=== PATIENT | male | born 1990 | race Caucasian/White ===

== ENCOUNTER 2024-12-10 07:16 | Emergency (ER) | payer SELFPAY ==
--- NOTE | ~2024-12-10 | CT_ITS ---
EXAMINATION: CT cervical spine wo con DATE: 12/10/2024 08:06 INDICATION: Neck pain radiating to the shoulders TECHNIQUE: Computed tomography (CT) of the cervical spine was performed without intravenous contrast. Automated exposure control and iterative reconstruction technique were employed. The dose-length product was 267.24 mGy-cm. COMPARISON: None FINDINGS: Cervical alignment is normal. Slight upper thoracic levocurvature. Vertebral body and disc heights are normal. There is suggestion of a right paracentral disc extrusion at C6-C7 with what appears to be disc material extending a few millimeters cephalad to the level of the inferior endplate of C6. This results in mild narrowing of the right side of the central canal and the right lateral recess. Sensitivity and specificity for assessment of the disks is however more limited than with MRI. Minimal to mild osteoarthritis at a few of the cervical facet and uncovertebral joints which does not result in appreciable neural foraminal stenosis. Visualized upper lungs are clear. Cervical soft tissues are unremarkable. Mastoid air cells, middle ear cavities and visualized portions of the paranasal sinuses are also clear. IMPRESSION: 1. Suggestion of a right paracentral disc extrusion at C6-C7 which mildly narrows the right side of the central canal and right lateral recess. Assessment of the disks is however significantly more limited with CT than MRI and could consider MRI for confirmation as clinically indicated. Reviewed, dictated and finalized at location A. IMPRESSION: 1. Suggestion of a right paracentral disc extrusion at C6-C7 which mildly narro ws the right side of the central canal and right lateral recess. Assessment of the disks is however significantly more limited with CT than MRI and could cons ider MRI for confirmation as clinically indicated.
[2024-12-10 07:16] VITALS: BP 127/85; PULSE 61; RESP 16; TEMP 36.5; O2SAT 99
--- NOTE | 2024-12-10 07:44 | ED_ITS ---
HPI - Neck Pain/Injury General Chief Complaint: Neck Pain/Injury Stated Complaint: neck pain denies injury Source: patient Mode of arrival: ambulatory Limitations: no limitations History of Present Illness HPI Narrative: 33-year-old male with a history of prior right shoulder pain presents to the ED with a 4 day history of -- neck pain radiating to Right shoulder. -- Pain over the anterior neck and the posterior neck muscles. No motor or sensory loss of the right upper extremity. no history of trauma. The patient has been moving heavy objects at home. MD complaint: neck pain Onset (ago): day(s) ( Four days) Radiation: right lateral and right shoulder Severity: severe Quality: aching Duration: constant Relieving factors: immobilization Exacerbating factors: movement of extremity Associated symptoms: numbness and tingling ( numbness tingling of right little finger) Treatments prior to arrival: ibuprofen Related Data Allergies Allergy/AdvReac Type Severity Reaction Status Date / Time No Known Allergies Allergy Verified 12/10/24 07:40 Review of Systems Review of Systems: All systems reviewed & are unremarkable except as noted in HPI and below Constitutional: Constitutional: Reports as per HPI and Reports no additional constitutional complaints Eyes: Eyes: Reports as per HPI and Reports no additional eye complaints ENT: Reports system reviewed and no additional complaints, except as documented and Reports as per HPI Cardiovascular: Cardiovascular: Reports as per HPI and Reports no additional cardiovascular complaints Respiratory: Respiratory: Reports as per HPI and Reports no additional respiratory complaints Gastrointestinal: Gastrointestinal: Reports as per HPI and Reports no additional gastrointestinal complaints Genitourinary: Genitourinary: Reports no additional male genitourinary complaints and Reports as per HPI Musculoskeletal: Musculoskeletal: Reports no additional musculoskeletal complaints and Reports as per HPI Integumentary/Breasts: Skin/Breast: Reports system reviewed and no additional complaints, except as docu and Reports as per HPI Neurologic: Reports system reviewed and no additional complaints, except as documented and Reports as per HPI Comments: numbness and tingling of the right little finger Psychiatric: Psychiatric: Reports no additional psychiatric complaints and Reports as per HPI Endocrine: Endocrine: Reports no additional endocrine complaints and Reports as per HPI Hematologic/Lymphatic: Hematologic/Lymphatic: Reports no additional hematologic/lymphatic complaints and Reports as per HPI Allergic/Immunologic: Allergic/Immunologic: Reports no additional allergic/immunologic complaints and Reports as per HPI Exam Narrative: vitals are stable. Afebrile Const: General: no acute distress Orientation/consciousness: patient oriented x3 Limitations: no limitations HENMT: Head: normal to inspection Ears: external ears normal Face/Nose/Sinus: Normal external nose present Face and sinus: normal facial exam Throat: posterior oropharynx normal Eyes: Conjunctivae: conjunctivae normal Pupils: Equal, round and reactive pupils present EOM: EOMs intact bilaterally Direct Ophthalmoscopy: no photophobia Neck: Neck: normal visual inspection, no lymphadenopathy and no meningeal signs Other: tenderness over C7-T1 region. Tenderness over the sternomastoid on the right side tenderness over the trapezius the right side. Chest: Chest palpation & inspection: normal inspection of the chest Resp: Effort & Inspection: normal respiratory effort Auscultation: clear to auscultation bilaterally Cardio: Rate: regular rate Rhythm: regular rhythm GI: GI Palp: Yes Soft to palpation Auscultation: normal bowel sounds Other: no tenderness/ rigidity / rebound. : General: Yes no CVA tenderness Back/Spine/Pelvis: Back: no CVA tenderness Skin: General skin exam: normal color Rashes: no rashes Wounds: no wounds Neuro: General: patient oriented x3, moves all extremities, no meningeal signs and CN's II-XI intact bilaterally Cranial nerves: Yes Nystagmus not present Speech: normal speech Gait exam (Neuro): Normal gait present Extrem: General: normal to inspection Other: Intact reflexes of right upper extremity Psych: Mental Status: mental status grossly normal Affect: normal affect Attitude: cooperative Course Course Emergency Course: Acute onset neck pain radiating to the right shoulder myalgia of the sternomastoid and the right trapezius CT of the C-spine revealed right paracentral disc extrusion at C6/C7 level with narrowing of the right central canal and right lateral recess. Vital Signs Vital signs: Vital Signs Temperature 36.5 C 12/10/24 07:16 Pulse Rate 61 12/10/24 07:16 Respiratory Rate 16 12/10/24 07:16 Blood Pressure 127/85 12/10/24 07:16 Pulse Oximetry 99 12/10/24 07:16 Oxygen Delivery Room Air 12/10/24 07:16 Temperature 36.5 C 12/10/24 07:16 Pulse Rate 61 12/10/24 07:16 Respiratory Rate 16 12/10/24 07:16 Blood Pressure 127/85 12/10/24 07:16 Pulse Oximetry 99 12/10/24 07:16 Oxygen Delivery Room Air 12/10/24 07:16 MDM - Neck Pain/Injury MDM Narrative Medical decision making narrative: Cervical intervertebral disc prolapse WITH RADICULOPATHY Differential Diagnosis Differential diagnosis: Likely cervical radiculopathy and strain of neck muscle Lab Data Attestation: I reviewed the patient's lab results. Discharge Plan Discharge Clinical Impression: Cervical radiculopathy, Prolapsed cervical intervertebral disc Patient Disposition: Home Condition: Stable Instructions: Antibiotic Form, Cervical Radiculopathy (ED), Acute Neck Pain (ED) Patient Language: Belarusian Prescriptions: New cyclobenzaprine 5 mg tablet 5 mg PO TID PRN (Reason: muscle spasm) Qty: 10 0RF diclofenac sodium 50 mg tablet,delayed release (DR/EC) 50 mg PO Q12H PRN (Reason: pain) Qty: 30 0RF Follow-up/Referrals: Colby Lipscomb MD [Physician, Internal Medicine] Stand Alone Forms: Work/School Release IP Time of Disposition: 08:52
[2024-12-10] MEDS: KETOROLAC 30 MG/ML VIAL (*BKC) IM (07:55)
--- OUTSIDE RECORDS SUMMARY | 2024-12-10 08:14 | XMS_ITS | Clinical Summary ---
Author Organization [facility] Address [address] [place] [address] Care Team Providers Care Doctor Of Podiatry Name Role Phone Donaldo Bach MD Primary Care Provider [phone] Allergies No known active allergies Medications No known medications Active Problems Problem Noted Date Diagnosed Date Right knee pain 10/31/2021 Social History Tobacco Use Types Packs/Day Years Used Date Smoking Tobacco: Former Smokeless Tobacco: Never Tobacco Cessation:Counseling Given: Not Answered Alcohol Use Standard Drinks/Week Comments Never 0 (1 standard drink = 0.6 oz pur e alcohol) Sex and Gender Information Value Date Recorded Sex Assigned at Not on file 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 Gender Identity Not on file Sexual Orientation Not on file Last Filed Vital Signs Vital Sign Reading Time Taken Comments Blood Pressure 128/71 09/03/2023 8:57 AM CDT Pulse 65 09/03/2023 8:57 AM CDT Temperature 37 C (98.6 F) 09/03/2023 8:57 AM CDT Respiratory Rate 18 09/03/2023 8:57 AM CDT Oxygen Saturation 100% 09/03/2023 8:57 AM CDT Inhaled Oxygen Concentration - - Weight 68 kg (150 lb) 09/03/2023 8:57 AM CDT Height 175.3 cm (5' 9) 09/03/2023 8:57 AM CDT Body Mass Index 22.15 09/03/2023 8:57 AM CDT Plan of Treatment Health Maintenance Due Date Last Done Comments Annual Physical 01/01/1996 DTaP, Tdap and Td Vaccines (5 - Tdap) 01/01/2004 11/17/1997, 08/25/1994, 02/24/1994, Additional history exists Hepatitis C 2010 HPV Vaccines (1 - 3-dose SCDM series) 01/01/2020 COVID-19 Vaccine ( season) 2023 Hepatitis B Vaccines Completed 02/24/1994, 05/27/1993, 02/02/1993 Meningococcal B Vaccine Aged Out No l onger eligible based on patient's age to complete this topic Meningococcal Vaccine Aged Out No casi destiny eligible based on patient's age to complete this topic Pneumococcal Vaccine: Pediatrics (0 to 5 Years) and At-Risk Patients (6 to 49 Years) Aged Out No longer eligible based on patient's age to complete this topic RSV Immunizations Under 20 Months Aged Out No longer eligible based on patient's age to complete this topic [place] [place] [id number] [facility] [place] Care Teams Doctor Of Podiatry Relationship Specialty Start Date End Date Donaldo Bach MD [address] [place] [address] PCP - General FAMILY PRACTICE 09/03/23
--- OUTSIDE RECORDS SUMMARY | 2024-12-10 08:14 | XMS_ITS | Clinical Summary ---
Author Organization [facility] Address [address] [place] [address] Care Team Providers Care Nursing Clinical Director Name Role Phone Donaldo Bach MD Primary Care Provider [phone] Source Comments [facility] [employer],non-owned Affiliates and Associated Physician Practices is amultiple site organization consisting of ambulatory clinics and hospital sitesin [place], [place], [place] and [place]. This disclosure is being madepursuant to the Care Everywhere program and may not contain all information available regarding this patient. 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 Gender Identity Not on file Sexual Orientation Not on file Plan of Treatment Health Maintenance Due Date Last Done Comments HIV SCREENING 01/01/2008 HEPATITIS C SCREENING 12/27/2010 DTAP/TDAP/TD VACCINES (1 - Tdap) 01/01/2012 HEPATITIS B VACCINE (1 of 3 - 19+ 3-dose series) 01/01/2012 HPV VACCINE (1 - 3-dose SCDM series) 01/01/2020 COVID-19 VACCINE (1 - 2023-2 5 season) 2023 DEPRESSION SCREENING 04/23/2024 INFLUENZA VACCINE (#1) 2024 ZOSTER VACCINE (1 of 2) 2042 HIB VACCINE Aged Out No longer eligi ble based on patient's age to complete this topic MENINGOCOCCAL (Group B) VACC INE SHARED DECISION-MAKING Aged Out No longer eligibl e based on patient's age to complete this topic MENINGOCOCCAL GROUPS A/C/Y/W VACCINE Aged Out No longer eligible b ased on patient's age to complete this topic PNEUMOCOCCAL VACCINE Aged Out No long er eligible based on patient's age to complete this topic Care Teams Nursing Clinical Director Relationship Specialty Start Date End Date Donaldo Bach MD [address] [place] [address] PCP - General 06/21/09
[2024-12-10 09:00] VITALS: BP 132/82; PULSE 61; RESP 18; TEMP 36.5; O2SAT 98
== END 2024-12-10 09:00 | disposition home or self-care (01) ==
PROVIDERS: Emergency Provider Internal Medicine Critical Care Medicine; Referring Provider Internal Medicine
DX: M54.12 Radiculopathy, cervical region (principal); M50.20 Other cervical disc displacement, unspecified cervical region
CPT/HCPCS: 72125; 96372; 99284; J1885